=== PATIENT | male | born 1955 | race Caucasian/White ===

== ENCOUNTER → 2021-10-09 | Outpatient (CLI) | payer MEDICARE ==
--- NOTE | 2021-10-09 11:50 | MR ---
EXAMINATION TYPE: MR Prostate wo/w con DATE OF EXAM: 10/09/2021 COMPARISON: None. INDICATION: Elevated PSA, family hx prostate cancer. PSA: 6.62 ng/ml on August 27, 2019 Recent Biopsy and Date: none. Pathology Report (If Applicable): n/a TECHNIQUE: Examination was performed using a 3T MRI without an endorectal coil. Multiparametric imaging was perf ormed with T2 mutliplanar sequences, axial diffusion weighted imaging and dynamic contrast enhanced i maging, utilizing 9.5 mL intravenous Gadavist gadolinium contrast. FINDINGS: There is no clinically significant cancer identified. PROSTATE VOLUME: 7.2 cm SI x 4.9 cm AP x 5.5 cm LR Vol= 101.60 cc Predicted PSA equals 12.192 PSA DENSITY: 0.07 ng/ml/cc Markedly enlarged prostate consistent with BPH bulging on bladder base. Significant transitional zone hypertrophy. T1-weighted images show no hyperdense material to suggest blood product. No recent biop sy noted. Peripheral zone is thinned along the periphery. No definitive areas of suspicious diminishe d signal on ADC mapping were increased signal on diffusion-weighted imaging in the peripheral zone. H eterogeneity in the transitional zone without distinct suspicious lesion of moderate low T2 signal. N o restricted diffusion is evident. Prostate capsule is maintained. Seminal vesicles are within normal limits. No adjacent adenopathy monica yandel seen. Mild wall thickening and trabeculation in the urinary bladder. No concerning pelvic ascite s. No suspicious bowel dilatation. Visualized osseous structures are intact. IMPRESSION: Markedly enlarged prostate consistent with BPH. A focus of clinically significant cancer is not identified. Highest Assessment Category: 1 MRI Stage: T0 N0 M0 based on review of pelvic images. False negative rates for MRI range from 5-20% depending on risk profile. Assessment Categories: 1 ? Very low (clinically significant cancer is highly unlikely to be present) 2 ? Low (clinically significant cancer is unlikely to be present) 3 ? Intermediate (the presence of clinically significant cancer is equivocal) 4 ? High (clinically significant cancer is likely to be present) 5 ? Very high (clinically significant cancer is highly likely to be present)
== END | disposition home or self-care (01) ==
LOC: RADMRIMAIN 07:14
PROVIDERS: ATTEND Family Medicine
DX: N40.0 Benign prostatic hyperplasia without lower urinary tract symptoms (principal); R97.20 Elevated prostate specific antigen [PSA]; Z80.42 Family history of malignant neoplasm of prostate
CPT/HCPCS: 72197; A9585

== ENCOUNTER → 2023-11-14 | Outpatient (CLI) | payer MEDICARE ==
--- NOTE | 2023-11-14 10:17 | MR ---
EXAMINATION TYPE: MR Prostate wo/w con DATE OF EXAM: 11/14/2023 8:04 AM COMPARISON: 10/09/2021. CLINICAL INDICATION:Male, 68 years old with history of R97.20 Elevated PSA; Elevated PSA TECHNIQUE: Multi-planar, multi-sequence imaging of the pelvis is performed prior to and following the uncomplicated administration of bolus intravenous gadolinium. CONTRAST: 9 Gadobutrol Interpretive Criteria: PI-RADS v2.1 SERUM PSA: 5.79 on 09/26/2023. SURGICAL PATHOLOGY: No data available. FINDINGS: Prostatic dimensions: 5.7 x 7.8 x 4.6 cm. Ellipsoid Volume:107.08 (PSA density=0.05 ng/mL/mL) CENTRAL GLAND (Central and Transition Zones/CZ+TZ): Multiple bilateral, heterogenous appearing hypertrophic stromal nodules, without suspicious lesion. M edian lobe hypertrophy with protrusion into the base of the bladder. (PI-RADS 2) PERIPHERAL ZONE (PZ): Bilateral linear, indistinct wedgelike areas of low ADC, and low T2 signal, No evidence of masslike a bnormality, or localized perfusional hypervascularity, to further suggest a focus of clinically signi ficant prostate cancer. (PI-RADS 2) SEMINAL VESICLES (SV): Symmetric and unremarkable. PERIPROSTATIC TISSUES: Unremarkable. LYMPH NODES: No enlarged pelvic lymph node. REMAINING PELVIS: Bladder wall is within normal limits given distention. No abnormal free or organized intrapelvic fluid collection. No pathologic bowel dilation or mural thickening. Colonic diverticula are present. No hernia visualized OSSEOUS STRUCTURES: No suspicious osseous abnormality. Abnormal edema within the left gluteus medius muscle near its inse rtion on the greater trochanter. IMPRESSION: 1. No specific features for high-risk prostate cancer. Maximum PI-RADS score: 2. 2. Substantial BPH, estimated gland volume 107.08 mL. 3. No suspicious osseous lesion. No lymphadenopathy. No evidence of prostate adenocarcinoma involving the periprostatic tissues. 4. Left gluteus medius muscle strain/partial tear of the myotendinous junction. Correlate with histor y of injury.
== END | disposition home or self-care (01) ==
LOC: RADMRIMAIN 07:07
PROVIDERS: ATTEND Family Medicine
DX: N40.0 Benign prostatic hyperplasia without lower urinary tract symptoms (principal); R97.20 Elevated prostate specific antigen [PSA]
CPT/HCPCS: 72197; A9585

== ENCOUNTER 2023-11-24 12:09 | Day surgery (SDC) | payer MEDICARE ==
[2023-11-21 08:52] VITALS: BMI 30.7
[2023-11-24 12:54] LABS: Glucose,Whole Blood 109 mg/dL (70-110)
[2023-11-24] MEDS: LACTATED RINGERS 1,000 ML IV SCH (12:55)
[2023-11-24 13:06] VITALS: RESP 16; TEMP 97.9
[2023-11-24] MEDS ORDERED: LIDOCAINE 1% INJ 10MG/ML (20 ML MDV) ONE (13:31)
[2023-11-24] MEDS ORDERED: PROPOFOL 10 MG/ML 20 ML VIAL IV ONE (13:31)
--- NOTE | 2023-11-24 13:34 | P.GSHP ---
History of Present Illness H&P Date: 11/24/23 Chief Complaint: GERD this a 68-year-old male with history of GERD. Patient presents today for EGD. Past Medical History Past Medical History: GERD/Reflux, Hyperlipidemia, Hypertension, Thyroid Disorder Additional Past Medical History / Comment(s): "borderline diabetic"-diet control ,occ. hypoglyemic, elevated PSA History of Any Multi-Drug Resistant Organisms: None Reported Past Surgical History: Hernia Repair, Joint Replacement, Tonsillectomy Additional Past Surgical History / Comment(s): RT TKA. COLONOSCOPY Past Anesthesia/Blood Transfusion Reactions: No Reported Reaction Smoking Status: Never smoker - Past Family History Brother(s) Family Medical History: Cancer Medications and Allergies Home Medications Medication Instructions Recorded Confirmed Type Levothyroxine Sodium [Synthroid] 75 mcg PO DAILY 12/21/15 11/24/23 History Finasteride [Proscar] 5 mg PO DAILY 11/21/23 11/24/23 History Lovastatin [Mevacor] 40 mg PO HS 11/21/23 11/24/23 History Pantoprazole [Protonix] 40 mg PO HS 11/21/23 11/24/23 History Valsartan 160 mg PO HS 11/21/23 11/24/23 History oxyBUTYnin chloride [Ditropan] 5 mg PO HS 11/21/23 11/24/23 History Allergies Allergy/AdvReac Type Severity Reaction Status Date / Time ibuprofen Allergy skin burn Verified 11/24/23 12:47 and peeling Surgical - Exam Vital Signs Temp Pulse Resp BP Pulse Ox 97.9 F 94 16 166/93 95 11/24/23 12:46 11/24/23 12:46 11/24/23 12:46 11/24/23 12:46 11/24/23 12:46 - General well developed, well nourished, no distress - Eyes PERRL - ENT normal pinna, normal nares - Neck no masses - Respiratory normal expansion - Cardiovascular Rhythm: regular - Abdomen Abdomen: soft, non tender Assessment and Plan Assessment: GERD. We'll perform EGD.
--- NOTE | 2023-11-24 13:41 | P.OP ---
Date of Procedure: 11/24/23 Preoperative Diagnosis: GERD Dysphagia Postoperative Diagnosis: antral gastritis Small sliding hiatal hernia Minimal esophagitis Procedure(s) Performed: EGD Anesthesia: MAC Surgeon: Carlton Cazares Pathology: other (antrum, esophagus) Condition: stable Disposition: PACU Description of Procedure: patient's placed on the endoscopy table in the lateral position. He received IV sedation. The gastro-/oropharynx passed in the esophagus and stomach. Scope was then placed through the pylorus. The first and second portion of the duodenum appeared normal. Scope was then brought back the antrum this. Mildly inflamed. A biopsies performed. The scope was then retroflexed and the remainder the stomach appeared normal. The patient had a small sliding hiatal hernia. The GE junction was at 40 cm the distal esophagus appeared mildly inflamed. A biopsies performed. The proximal esophagus appeared normal. Scope withdrawn for patient. Patient was scheduled for and esophagram upper GI due to his dysphagia symptoms.
[2023-11-24 14:35] VITALS: BP 154/94; PULSE 79
== END 2023-11-24 14:27 | disposition home or self-care (01) ==
LOC: ORWHC2ENDO 12:09
PROVIDERS: ATTEND Surgery
DX: K29.50 Unspecified chronic gastritis without bleeding (principal); K21.00 Gastro-esophageal reflux disease with esophagitis, without bleeding; K44.9 Diaphragmatic hernia without obstruction or gangrene; I10 Essential (primary) hypertension; E78.5 Hyperlipidemia, unspecified; E07.9 Disorder of thyroid, unspecified; Z90.89 Acquired absence of other organs; Z98.890 Other specified postprocedural states; Z79.890 Hormone replacement therapy; Z79.899 Other long term (current) drug therapy; Z88.6 Allergy status to analgesic agent; Z96.652 Presence of left artificial knee joint
CPT/HCPCS: 88305; 43239; J2001; J2704

== ENCOUNTER → 2023-11-26 | Outpatient (CLI) | payer MEDICARE ==
--- NOTE | 2023-11-26 10:24 | FL ---
EXAMINATION TYPE: FL UGI w esophagus DATE OF EXAM: 11/26/2023 9:43 AM CLINICAL INDICATION:Male, 68 years old with history of K21.9 GASTRO-ESOPHAGEAL REFLUX DISEASE WITHOUT ESO; COMPARISON: None TECHNIQUE: The procedure was explained and patient history elicited. All patient questions were ans wered prior to start of procedure. A voting machine mechanic radiograph of the abdomen was also reviewed. Multiple flu oroscopic spot images of the esophagus, stomach and duodenum were obtained following ingestion of liq uid barium and EZ-gas crystals. Fluoroscopic time: 2 minutes 8 seconds min Radiographs taken: 75 DAP: [id number] mGym2 FINDINGS: Upper GI examination: The voting machine mechanic abdominal radiograph demonstrates a normal bowel gas pattern without dilated loops of small or large bowel. There is no evidence for organomegaly or pneumoperitoneum. No abnormal calcificat ions. The visualized osseous structures are intact. The esophagus appears unremarkable without evidence of focal stricture, ulceration or abnormal outpou patricio. No hiatal hernia was visualized. Transient transverse lines are seen to the mid and distal e sophagus. Multiple tertiary contractions are present. The stomach and duodenum demonstrate a normal c ourse and contour. There is no evidence of focal gastric or duodenal ulceration, stricture, or abnor mal outpouching. IMPRESSION: Large gastro-esophageal reflux with the patient was lying prone.
== END | disposition home or self-care (01) ==
LOC: RADUSWWP 08:54
PROVIDERS: ATTEND Surgery
DX: K21.9 Gastro-esophageal reflux disease without esophagitis (principal)
CPT/HCPCS: 74240

== ENCOUNTER → 2024-11-17 | Outpatient (CLI) | payer MEDICARE ==
[2024-11-17 09:18] LABS: African American GFR (CKD) >90 (>60 ml/min/1.73 sqM); Blood Urea Nitrogen 23 mg/dL (9-20); Non-African American GFR(CKD) >90 (>60 ml/min/1.73 sqM)
--- NOTE | 2024-11-17 11:04 | CT ---
EXAMINATION TYPE: CT abdomen pelvis w con CT DLP: 1495 mGycm, Automated exposure control for dose reduction was used. DATE OF EXAM: 11/17/2024 10:55 AM COMPARISON: Upper GI with esophagram 11/26/2023, MR prostate 11/14/2023, 10/09/2021 CLINICAL INDICATION:Male, 69 years old with history of C61 MALIGNANT NEOPLASM OF PROSTATE; Malignant neoplasm of prostate TECHNIQUE: Standard CT of the abdomen and pelvis following the administration of 100 cc of Isovue 3 00 IV contrast material and oral contrast. Coronal and sagittal reformats were performed. FINDINGS: LOWER CHEST: Visualized lung bases are clear. Aortic valvular calcifications. Mitral annulus calcific ations. Probable right-sided healed rib fractures. ABDOMEN LIVER: Subcentimeter left hepatic lobe focus which is too small to characterize but likely represents a cyst. GALLBLADDER AND BILE DUCTS: Unremarkable. PANCREAS: Unremarkable. SPLEEN: Unremarkable. ADRENAL GLANDS: Unremarkable. KIDNEYS AND URETERS: No evidence of hydronephrosis or renal calculus. The ureters are unremarkable. PELVIS BLADDER: Underdistended but grossly unremarkable. REPRODUCTIVE: Coarse calcifications of the prostate gland are identified. Enlarged prostate gland micki suring 5.6 cm in transverse dimension. ABDOMEN & PELVIS STOMACH AND BOWEL: Stomach and duodenum are unremarkable. Enteric contrast reaches the descending col on. The appendix is within normal limits. No focal bowel wall thickening or surrounding inflammatory changes. No evidence of bowel obstruction. PERITONEUM: No evidence of pneumoperitoneum or free fluid. VASCULATURE: Mild atherosclerotic calcifications are present throughout the abdominal aorta and its b ranches. No evidence of aortic aneurysm. MUSCULOSKELETAL: No acute osseous abnormalities. Remote healed right-sided rib fractures. Degenerativ e changes of the pubic stenosis. Mild multilevel degenerative disc disease. No suspicious osseous les ions. LYMPH NODES: No evidence for lymphadenopathy. SOFT TISSUE/ABDOMINAL WALL: Unremarkable IMPRESSION: 1. No acute abdominal/pelvic process. No CT evidence for metastatic disease. 2. Prostatomegaly. [facility], , 11/17/2024 11:01 AM
--- NOTE | 2024-11-17 15:36 | NM ---
INDICATION: Patient age:Male; 69 years old; Reason for study: C61 MALIGNANT NEOPLASM OF PROSTATE; [facility]. COMPARISON: CT abdomen and pelvis 11/17/2024, MR prostate 11/14/2023, 10/09/2021. TECHNIQUE: Intravenous administration of 23.1 mCi of Technetium 99m-Medronate followed by multiple sc intigraphic images of the appendicular and axial skeleton. Additionally, small field of view planar a nterior and posterior images of the lumbosacral spine and pelvis. Lastly, small [id number] anterio r, posterior and lateral views of the chest were submitted for review. FINDINGS: No abnormal uptake is identified within the appendicular or axial skeleton to suggest metastatic dise ase. There is increased uptake within the bilateral shoulder, bilateral knee, bilateral ankles, right MCP joint, left wrist, sternoclavicular, and sacroiliac joints consistent with degenerative changes. No other photopenic areas or areas of increased activity are identified. Physiologic radiotracer activity is demonstrated in the kidneys and bladder. IMPRESSION: Nothing to suggest metastatic disease. [facility], , 11/17/2024 3:34 PM
== END | disposition home or self-care (01) ==
LOC: RADNMMAIN 08:39
PROVIDERS: ATTEND Family Medicine
DX: C61 Malignant neoplasm of prostate (principal); N40.0 Benign prostatic hyperplasia without lower urinary tract symptoms
CPT/HCPCS: 82565; 84520; 74177; 36415; 78306; A9503; Q9967